=== PATIENT | female | born 1945 | race Caucasian/White ===

== ENCOUNTER 2018-11-10 06:04 | Inpatient (IN) | payer OTHER ==
[2018-11-03 12:14] LABS: ABSOLUTE BASOPHILS 0.1 thou/uL (0.0-0.2); ABSOLUTE EOSINOPHILS 0.1 thou/uL (0.0-0.7); ABSOLUTE LYMPHOCYTES 1.7 thou/uL (0.8-5.3); ABSOLUTE MONOCYTES 0.6 thou/uL (0.0-1.2); ABSOLUTE NEUTROPHILS 6.2 thou/uL (1.6-8.1); BASOPHILS 0.8 %; EOSINOPHILS 1.6 %; HEMATOCRIT 39.7 % (37.0-47.0); HEMOGLOBIN 13.2 gm/dL (12.0-15.0); LYMPHOCYTES 19.4 %; MCHC 33.3 g/dL (28.0-37.0); MPV 8.4 fl. (7.2-11.1); NUCLEATED RBCS 0 /100WBC; PLATELET COUNT* 314 thou/uL (150-400); POLYS 71.2 %; RBC 4.27 mil/uL (4.20-5.00); RDW-CV 14.2 % (10.5-14.5); WBC 8.8 thou/uL (4.0-11.0)
--- NOTE | 2018-11-03 12:21 | EKG ---
[place] [address] ELECTROCARDIOGRAM REPORT Name: FAROOQ MEDEL Room: PRE IN [facility]#: [id number] Admission: Attend Phys: Alda Johnson Discharge: Date of : 41 Report #: [id number] THIS REPORT FOR: //name// [facility] Test Date: 2018-11-03 Test Time: 12:15:14 Pat Name: FAROOQ MEDEL Department: Room: Gender: F Artist Representative: KEVIN : 1945 Requested By: Kyree Haley Order Number: [id number] Roya GOMEZ: Hieu Boone Measurements Intervals [place] Rate: 81 P: -18 LA: 182 QRS: -96 QRSD: 139 T: 30 QT: 399 QTc: 464 Interpretive Statements Sinus rhythm Right bundle branch block Inferior infarct, old Lateral leads are also involved No previous ECG available for comparison Electronically Signed On 11-03-2018 12:20:37 FORMAL SERVICE WAITER by Hieu Boone [email or web address] <ELECTRONICALLY SIGNED> By: Hieu Boone MD, [facility] 11/03/18 1220 1215 1215 Hieu Boone MD, FACC /EPI
[2018-11-03 12:22] LABS: APTT 25.3 Seconds (25.0-31.3)
[2018-11-03 12:33] LABS: ALBUMIN 3.5 g/dL (3.4-5.0); CREATININE 0.8 mg/dL (0.6-1.3); POTASSIUM 3.3 mmol/L (3.5-5.1); TOTAL BILIRUBIN 0.3 mg/dL (<0.1-1.0); TOTAL PROTEIN 7.3 g/dL (6.4-8.2)
[2018-11-03 23:07] LABS: GLYCOHEMOGLOBIN (HGB A1C) 6.5 % (4.8-5.6)
[~2018-11-10] VITALS: Ht 165.1 cm; Wt 73.0 kg
--- NOTE | ~2018-11-10 | OP ---
[facility] [address] [place] [address] OPERATIVE REPORT Name: FAROOQ MEDEL Room: [address] IN ..#: [id number] Admission: 11/10/18 Attend Phys: Alda Johnson Discharge: Date of : 41 Report #: [id number] THIS REPORT FOR: //name// CC: Kyree Starkey DICTATED BY: Ronald Linares DO DATE OF SERVICE: 11/10/2018 PREOPERATIVE DIAGNOSIS: Right hip degenerative joint disease. POSTOPERATIVE DIAGNOSIS: Right hip degenerative joint disease. PROCEDURE: Right total hip arthroplasty utilizing a MicroPort total hip arthroplasty system with the following components: 1. Size 54 mm Biofoam acetabular shell. 2. A 36 mm lipped acetabular liner. 3. Four straight Profemur classic femoral stem. 4. A 36 mm ceramic femoral head with a medium neck length. 5. Two 6.5 mm diameter acetabular screws, one 3 cm in length, the other 3.5 cm in length. SURGEON: Kyree Haley DO. FLOOR FRAMER: 1. Ronald Linares DO. 2. Colby Starr DO. ANESTHESIA: General. ESTIMATED BLOOD LOSS: 700 mL with 200 mL given back via Cell Saver. ANTIBIOTICS: 1 gram Ancef IV preoperatively. SPECIMENS: None. DRAINS: None. DISPOSITION: Stable to PACU. He will be admitted to the hospital for standard postoperative care. COMPLICATIONS: None. INDICATION FOR PROCEDURE: The patient is a pleasant 73-year-[place] [address] OPERATIVE REPORT Name: FAROOQ MEDEL Room: [address] IN [facility].#: [id number] Admission: 11/10/18 Attend Phys: Alda Johnson Discharge: Date of : 41 Report #: [id number] seen multiple times in [facility] with complaints of chronic right hip pain. On x-ray, she was found to have advanced degenerative joint disease with complete obliteration of joint space, osteophytic lipping and subchondral sclerosis noted. Her right hip pain was refractory to conservative measures consisting of oral anti-inflammatories, activity modifications, home physical therapy exercises for much greater than 6 months' duration. Therefore, I recommended operative treatment consisting of a right total hip arthroplasty. Risks, benefits, complications, indications and alternative treatments were discussed and the patient wished to proceed with surgery today. DESCRIPTION OF PROCEDURE: The patient was seen in preoperative holding area. Correct operative site, right hip was initialed. The patient was taken to the operating suite and placed in supine position on the operating table, given benefit of general anesthetic. The patient was then placed in the left lateral decubitus position with the right hip facing upward. The right hip was then prepped and draped in typical fashion. Surgery began with a timeout, identifying correct patient, correct procedure, correct operative site, preoperative antibiotics and correct performing surgeon. Next, a standard skin incision for an anterolateral approach to the right hip was performed. A skin incision started roughly 2-3 cm posterior superior to the tip of the greater trochanter extending to the greater trochanter and down the shaft of the femur on the anterior aspect. A skin incision was roughly 10 cm in length. Subcutaneous tissues were sharply dissected down to the level of the fascia levon. Fascia levon was incised at its distal aspect with a new 10 blade scalpel and then was released in the entirety of the wound from both proximally and distally with a Metzenbaum scissors. Next, the anterior third of the gluteus medius tendon was peeled off of the greater trochanter in normal fashion utilizing electrocautery. We were able to visualize our capsule at this time. A capsulotomy was performed at this time in the usual fashion. The femoral head was dislocated with typical maneuver. The femoral neck cut was performed utilizing an oscillating saw, roughly 1 fingerbreadth proximal to the lesser trochanter in the normal fashion. Next, attention was turned back to the acetabulum. With appropriate retraction, we had a great visualization of her acetabulum. Surrounding soft tissue structures consisting of the labrum and part of the capsule were excised around the periphery of the acetabular rim utilizing electrocautery in normal fashion as well as the remaining debris in the cotyloid fossa. Next, we performed sequential reaming up to a size 54 mm reamer in the usual fashion. We medialized to the inner aspect of her cotyloid fossa and had great bleeding cancellous bone around the entirety of the acetabulum. We had great remaining anterior and posterior arteaga as well as our superior weightbearing surface. We, therefore, impacted our final acetabular shell in the appropriate amount of abduction and anteversion angle judging by the external guide. Next, we drilled and filled 2 acetabular bone screws in the posterior superior quadrant of the acetabulum in the normal fashion. Next, we placed our standard lip liner with the lip facing in the anterior superior [address] [address] OPERATIVE REPORT Name: FAROOQ MEDEL Room: [address] IN [facility].#: [id number] Admission: 11/10/18 Attend Phys: Alda Johnson Discharge: Date of : 41 Report #: [id number] direction and impacted this into place. Next, attention was turned back to the proximal femur preparation. We performed a box osteotome and a canal finder in a normal fashion followed by the lateralizer for our femoral canal. Next, we performed sequential broaching up to a size 4 femoral broach. This seemed to be sitting well, had a great fit and does seem to be stable within the canal of the femur. Next, we performed trial reduction with a standard offset and a standard neck length. Hip seemed to be stable throughout range of motion with this construct. We performed intraoperative flat plate x-ray to confirm appropriate component positioning and appropriate size of our femoral stem as well as appropriate offset and leg length. We felt this was all appropriate, which was confirmed on the intraoperative x-ray. Therefore, we dislocated the trial hip components, removed our trial femoral components, irrigated the femoral canal and placed our final femoral stem in the normal fashion. Next, we impacted our final ceramic head with the appropriate neck length in the normal fashion and performed a final reduction of the hip. Hip was taken through range of motion and felt to be stable in all planes with no evidence of instability or possible subluxation or dislocation. Next, hip was thoroughly irrigated. Tranexamic acid was allowed to set in the wound for 35 minutes. Capsule was closed in a [id number]-nr-hnucv fashion with #1 Vicryl suture. The gluteus medius tendon was then reattached to the greater trochanter with big bony bites utilizing a #5 TiCron suture in a yoczmk-nh-hypri fashion. We performed multiple of these. We oversewed our gluteus medius repair with a running #1 Vicryl suture. Had great looking repair of our gluteus medius tendons at this time. Then, we closed the fascia levon in a running fashion with #1 Stratafix suture in the normal fashion. The subcutaneous tissue layer was closed with a 2-0 Vicryl suture in a simple inverted fashion and running 3-0 Stratafix was run in the subcuticular layer. Dermabond was applied to the skin. Sterile dressings were applied consisting of a Mepilex dressing. The patient was weaned from general anesthesia, transferred in stable condition to PACU. All sponge and needle counts were correct x 2. By: [id number] Haley DO /milan
[~2018-11-10 06:04] MED LIST: ATORVASTATIN CA40 MG PO; B12INJ IM; EFFEXOR XR75 MG PO; HYDROCHLOROTHIA25 M2 PO; IBUPROFEN 400400 M2 PO; JANUVIA100 MG PO; LISINOPRIL40 MG PO; METFORMIN HCL500 M2 PO; MULTIVITAMINS1 EAC7 PO; VITAMIN D32000 UNI1 PO; ZANTAC 150MG T150 MG PO
[2018-11-10 07:03] VITALS: BP 124/56
[2018-11-10 15:08] VITALS: BP 119/62
[2018-11-10 20:00] VITALS: BP 111/46
[2018-11-11 00:29] VITALS: BP 118/54
[2018-11-11 03:59] LABS: HEMATOCRIT 34.4 % (37.0-47.0); HEMOGLOBIN 11.5 gm/dL (12.0-15.0)
[2018-11-11 04:12] VITALS: BP 111/63
[2018-11-11 08:35] VITALS: BP 114/49
[2018-11-11 14:06] VITALS: BP 114/49
[2018-11-11 16:43] VITALS: BP 100/46
[2018-11-11 20:00] VITALS: BP 94/47
[2018-11-12] VITALS: BP 122/56
[2018-11-12 04:25] LABS: HEMATOCRIT 33.5 % (37.0-47.0); HEMOGLOBIN 11.2 gm/dL (12.0-15.0)
[2018-11-12 07:50] VITALS: BP 96/46
[2018-11-12 16:33] VITALS: BP 112/42
[2018-11-12 20:30] VITALS: BP 113/33
[2018-11-13] VITALS: BP 118/39
[2018-11-13 04:00] VITALS: BP 114/52
[2018-11-13 07:40] VITALS: BP 129/45
[2018-11-13 18:02] VITALS: BP 99/46
[2018-11-13 19:45] VITALS: BP 124/36
[2018-11-14] VITALS: BP 115/41
[2018-11-14 04:21] LABS: HEMATOCRIT 28.3 % (37.0-47.0); HEMOGLOBIN 9.6 gm/dL (12.0-15.0); MCH 31.8 pg (26.0-34.0); MCV 93.4 fL (80.0-100.0); RBC 3.03 mil/uL (4.20-5.00); RDW-CV 14.1 % (10.5-14.5); WBC 9.3 thou/uL (4.0-11.0)
[2018-11-14 04:42] LABS: CALCIUM 8.1 mg/dL (8.5-10.1); CREATININE 0.7 mg/dL (0.6-1.3); MAGNESIUM 1.3 mg/dL (1.8-2.4); POTASSIUM 3.8 mmol/L (3.5-5.1)
[2018-11-14 05:40] VITALS: BP 116/56
[2018-11-14 09:00] VITALS: BP 118/62
[2018-11-14] MEDS ORDERED: HYDROCODONE-AP1 EAC6 PO (10:04)
[2018-11-14] MEDS ORDERED: ELIQUIS5 MG PO (10:04)
[2018-11-14] MEDS ORDERED: ASPIRIN325 PO (10:30)
== END 2018-11-14 14:45 | disposition home health service (06) | DRG 470 ==
LOC: EDBD → M.ORTHSURG 06:04 → M.TBA 06:04 → M.PRE 07:42 → M.ORTHSURG 13:42 → M.PRE 14:45 → M.ORTHSURG 11-14 14:45
PROVIDERS: Family Medicine; Orthopaedic Surgery; ADMIT Internal Medicine
PROC: 0SR903Z Replacement of Right Hip Joint with Ceramic Synthetic Substitute, Open Approach (ICD-10-PCS; principal; 2018-11-10)
DX: M16.11 Unilateral primary osteoarthritis, right hip (principal); D62 Acute posthemorrhagic anemia; I10 Essential (primary) hypertension; E11.9 Type 2 diabetes mellitus without complications; Z79.84 Long term (current) use of oral hypoglycemic drugs; Z79.899 Other long term (current) drug therapy

== ENCOUNTER → 2018-12-08 | Outpatient (CLI) | payer OTHER ==
[~2018-12-08] MED LIST changes: +ASPIRIN325 PO; +ELIQUIS5 MG PO; +HYDROCODONE-AP1 EAC6 PO
== END ==
LOC: M.ULTRA 16:00
DX: M79.661 Pain in right lower leg (principal); M25.561 Pain in right knee

== ENCOUNTER → 2020-07-03 | Outpatient (CLI) | payer MEDICARE | LOC: M.ULTRA 09:01 | PROVIDERS: ATTEND Nurse Practitioner | DX: R74.8 Abnormal levels of other serum enzymes (principal) ==